=== PATIENT | male | born 1980 | race Two or more races ===

== ENCOUNTER 2021-07-28 11:07 | Outpatient (REF) | payer BC, SELFPAY ==
[2021-07-28 12:24] LABS: COVID-19 Test Negative (Negative)
== END 2021-07-28 11:08 | disposition home or self-care (01) ==
LOC: HO.LAB 11:07
PROVIDERS: Visit Provider Internal Medicine
DX: Z20.822 Contact with and (suspected) exposure to COVID-19 (principal)
CPT/HCPCS: 36415; 87635; C9803